=== PATIENT | male | born 1960 | race Caucasian/White ===

== ENCOUNTER 2017-01-14 10:11 | Inpatient (IN) | payer OTHER ==
[2017-01-14] VITALS (13 sets, daily range): BP systolic 84–143; BP diastolic 46–78
[~2017-01-14] VITALS: Ht 170.2 cm; Wt 83.2 kg
--- NOTE | ~2017-01-14 | S ---
[facility] [place] [address] SURGICAL PATH RPT PROCEDURE Name: RITO DELGADO Room #: 455-P ADM IN M.R.#: [id number] Admission: 01/14/17 Date of : 60 Discharge: Report #: [id number] Path Case #: [id number] PATHOLOGY REPORT COLLECTION DATE: 01/22/2017 RECEIVED DATE: 01/22/2017 SUBMITTING PHYS: Dr. Kadeem Gonzalez OTHER PHYS: Dr. Iam Carter SPECIMEN(S) RECEIVED: A.Sigmoid colon * * * * * * * * * * * * FINAL DIAGNOSIS: "Sigmoid colon", resection: - Diverticulitis with acute and chronic inflammation, necrosis and granulation tissue extending into the subserosal adipose tissues; surgical margins without significant inflammation. - Serosa with reactive changes and dense serosal fibrous adhesions. - Lymph nodes (2) with hyperplasia. (2 nodes) (CLW:rodney; 01/25/2017) PATHOLOGIST: Yoana Marroquin M.D. REPORT ELECTRONICALLY SIGNED BY: Yoana Marroquin M.D. DATE/TIME: 01/25/2017 21:25 * * * * * * * * * * * * GROSS PATHOLOGY: Received in formalin labeled "Rito Delgado sigmoid colon" is an partially oriented portion of large bowel which measures 17.2 cm in length and 3.3 cm in diameter. The specimen is closed at both ends with staple lines. At one end there is a blue plastic suture. The serosa is pink-sanchez and smooth. The staple lines are removed, and the specimen is opened to reveal a strictured area in the midportion of the specimen measuring 1.0 cm in length and which has a luminal diameter of 1.3 cm. The colon mucosa is pink-sanchez with unremarkable folding and no polyps, masses, or perforations are identified. Approximately 5 diverticula are identified ranging from 0.2 x 0.2 x 0.1 cm to 0.3 x 0.3 x 0.2 cm. Armament Mechanic sections of the specimen are submitted as follows: A1-A2 staple line margin without suture A3-A4 staple line margin with suture A5 public health representative strictured area A6 public health representative diverticula ([facility]; 01/23/2017) [address] [address] SURGICAL PATH RPT PROCEDURE Name: RITO DELGADO Room #: 455-P ADM IN M.R.#: [id number] Admission: 01/14/17 Date of : 60 Discharge: Report #: [id number] Path Case #: [id number] CLINICAL HISTORY: Diverticulitis, abscess. INITIAL CPT CODE(S): A; 65959 Professional services performed by [facility] at [address], [place] [address] Technical services performed by [facility] at [address] [place] [address], [facility] [address] [address]. [facility] [address] [place] [address] PHONE: [phone] DIRECTOR: Juancarlos Serna M.D. * * * END OF REPORT * * *
--- NOTE | ~2017-01-14 | HC ---
[facility] [place] [address] CONSULTATION Name: BETTY WATKINS Room #: 455-P [facility] IN M.R.#: [id number] Admission: 01/14/17 Attend Phys: Soni Carter Discharge: 01/26/17 Date of : 60 Report #: [id number] THIS REPORT FOR: //name// CC: FAM unknown Soni Carter DATE OF SERVICE: 01/20/2017 HISTORY OF PRESENT ILLNESS: The patient is a 56-year-old white male who was noted to have iliopsoas abscess, was admitted and underwent drain placement. 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 He was noted to be septic originally. He also was noted to have a left lower quadrant wound with perforated diverticulitis with abscess and underwent excisional debridement of the left lower quadrant wound with application of a skin substitute on 01/20/2017. I am seeing him in rehabilitation medicine consultation. PAST MEDICAL HISTORY: Includes cardiomyopathy, hypertension, coronary artery disease, history of UT, GERD, fractures of the left ankle. MEDICATIONS: Please see the full medication listing. ALLERGIES: LISINOPRIL AND SIMVASTATIN. HABITS: Current every day smoker. SOCIAL HISTORY: Lives in a house, 3 steps in. Apparently has a significant other who sometimes lives with him. He has used a walker and cane. REVIEW OF SYSTEMS: Did not offer any current complaints of chest pain, shortness of breath or abdominal discomfort. He is just back from his surgical procedure and appears a little bit delirious at the current time. He is otherwise pleasant. PHYSICAL EXAMINATION: GENERAL: As noted above. He is a 56-year-old white male in no obvious distress. VITAL SIGNS: Last recorded temperature is 98.7, pulse 96, respirations 20, blood pressure 128/71. NEUROLOGIC: The patient is alert, a little delirious. As noted above, he has just back from the surgical procedure. Facies appeared symmetric except for some eye exotropia, bearded white male, male pattern baldness, functional range of motion of both upper extremities without focal weakness. DTRs are trace to 1. EXTREMITIES: Lower extremities, left foot is dressed. Groin wound is dressed. I did not examine. He has discomfort with moving that left leg. He was able to [facility] [address] [email or web address] [address] CONSULTATION Name: BETTY WATKINS Room #: 455-P [facility] IN M.R.#: [id number] Admission: 01/14/17 Attend Phys: Soni Carter Discharge: 01/26/17 Date of : 60 Report #: [id number] move the right leg a little bit better. I did not do a thorough manual muscle testing at this time. Tone appeared to be intact. Previous to this, he had been sit to stand, contact guard and ambulated 18 feet front-wheeled walker, contact guard. ASSESSMENT: A 56-year-old white male with the following problem list: 1. Juan's gangrene, status post incision and drainage, 01/16. 2. Left lower quadrant wound with perforated diverticulitis, status post excisional debridement with placement of a skin substitute on 01/20/2017. 3. Prior noted iliopsoas abscess, status post drain. 4. Generalized weakness and debilitation. 5. Diabetes mellitus. 6. Hypertension. 7. Coronary artery disease. 8. Sepsis. PLAN: Note that LTAC is being considered and we would certainly agree. At this point, we will continue to follow along with you regarding rehab therapy issues. <ELECTRONICALLY SIGNED> By: Juan Parker MD 01/27/17 1006 1159 0220 Juan Parker MD /[facility]
--- NOTE | ~2017-01-14 | S ---
[facility] [place] [address] SURGICAL PATH RPT PROCEDURE Name: RITO DELGADO Room #: 452-P ADM IN M.R.#: [id number] Admission: 01/14/17 Date of : 60 Discharge: Report #: [id number] Path Case #: [id number] PATHOLOGY REPORT COLLECTION DATE: 01/20/2017 RECEIVED DATE: 01/20/2017 SUBMITTING PHYS: Dr. Kadeem Gonzalez OTHER PHYS: Dr. Soni Carter SPECIMEN(S) RECEIVED: A.Left lower quadrant wound * * * * * * * * * * * * FINAL DIAGNOSIS: "Left lower quadrant wound", debridement: - Skin and subcutaneous tissue with acute and chronic inflammation, necrosis, granulation tissue, fat necrosis and fibrosis with focal pseudoepitheliomatous hyperplasia. COMMENT: The pattern of inflammation remains consistent with necrotizing fasciitis. Clinical correlation is recommended. (CLW:garett; 01/22/2017) PATHOLOGIST: Yoana Marroquin M.D. REPORT ELECTRONICALLY SIGNED BY: Yoana Marroquin M.D. DATE/TIME: 01/22/2017 23:41 * * * * * * * * * * * * GROSS PATHOLOGY: The specimen is received in formalin labeled "Rito Delgado, left lower quadrant wound". Received are two strips of pale sanchez skin with attached underlying yellow-sanchez two necrotic-appearing soft tissue measuring 13.8 x 5.5 x 1.9 cm in aggregate dimensions. The specimen is submitted representatively in cassette A1. (CAA; 01/21/2017) CLINICAL HISTORY: Left lower quadrant wound INITIAL CPT CODE(S): A; 16461 Professional [facility] by [facility] [address], [place] [address] [facility] [address] [place] [address] SURGICAL PATH RPT PROCEDURE Name: RITO DELGADO Room #: 452-P ADM IN M.R.#: [id number] Admission: 01/14/17 Date of : 60 Discharge: Report #: [id number] Path Case #: [id number] Technical services performed by [facility] at [address] [place] [address], [facility] [address] [address]. [facility] [address] [place] [address] PHONE: [phone] DIRECTOR: Juancarlos Serna M.D. * * * END OF REPORT * * *
--- NOTE | ~2017-01-14 | O ---
[facility] [place] [address] OPERATIVE REPORT Name: BETTY WATKINS Room #: 449-I ADM IN M.R.#: [id number] Admission: 01/14/17 Attend Phys: Soni Carter Discharge: Date of : 60 Report #: [id number] THIS REPORT FOR: //name// CC: FAM unknown Soni Gonzalez DATE OF SERVICE: 01/20/2017 SURGEON: Kadeem Gonzalez MD [employer]ARM LOAN REPRESENTATIVE: None PREOPERATIVE DIAGNOSES: 1. Left lower quadrant wound. 2. Perforated diverticulitis with abscess. 3. Cardiomyopathy (20-25% ejection fraction). POSTOPERATIVE DIAGNOSES: 1. Left lower quadrant wound. 2. Perforated diverticulitis with abscess. 3. Cardiomyopathy (20-25% ejection fraction). PROCEDURE: 1. Excisional debridement of left lower quadrant wound including skin, subcutaneous tissue, and muscle (starting measurement 16 x 4 cm; ending measurement 19.7 x 8.2 cm = 161.54 cm2 area). 2. Application of MiroDerm biologic skin substitute (161.54 cm2). 3. Misonix ultrasonic debridement. ANESTHESIA: General laryngeal mask anesthesia and local anesthetic. ESTIMATED BLOOD LOSS: 10 mL. SPECIMEN: Left lower quadrant wound including skin, subcutaneous tissue, and muscle. COMPLICATIONS: None appreciated. INDICATIONS FOR PROCEDURE: This is a 56-year-old male patient who was transferred from [place], [place] with diverticulitis and a 7.5 cm diverticular abscess. The patient underwent drainage of the abscess by Interventional Radiology on 01/14/2017. Air was present in the left groin. This substantially increased by Wednesday and the patient underwent incision and debridement of his left lower quadrant wound extending into the left scrotum. The patient presents now for wound exploration with possible [facility] [address] [place] [address] OPERATIVE REPORT Name: BETTY WATKINS Room #: 449-I ADM IN M.R.#: [id number] Admission: 01/14/17 Attend Phys: Soni Carter Discharge: Date of : 60 Report #: [id number] excisional debridement of necrotic tissue. OPERATIVE FINDINGS: The patient's skin edges were desiccated and there was no good blood flow present. Fibrinous exudate was present throughout the entire wound. The dependent portion of the wound extending into the scrotum contained pus. Cultures were taken for aerobes, anaerobes and fungus. After using the Misonix device, there appeared to be good blood flow to the debrided area. The wound was amenable to placement of MiroDerm mesh as a skin substitute to promote wound healing. No other significant pathology was identified. There was no evidence for ongoing abscess drainage into the left lower quadrant space. DESCRIPTION OF PROCEDURE IN DETAIL: After the risks, benefits, and expectations of the operation were discussed in detail with the patient, informed consent was obtained. The patient was identified in the preoperative holding area. He has been receiving scheduled IV antibiotics. The patient was then taken to the operating room and he was placed in the supine position. SCDs were placed on the patient's bilateral lower extremities and pneumatic compression was initiated. The patient was given IV sedation and a laryngeal mask was placed without difficulty. The patient's left lower quadrant and left groin were prepped and draped in the standard sterile fashion. A time-out was then performed to identify the correct patient and procedure. Local anesthetic was infiltrated into the skin and subcutaneous tissue around the skin edges which were not bleeding and were desiccated. A sharp #10 blade scalpel was then used to make an incision around the previous incision to excise skin, subcutaneous tissue, and muscle. Fibrinous exudate was removed as well. The tissue was sent for specimen. The wound was then curetted and the deep portion of the wound was probed. Purulent fluid was present. Cultures were taken for aerobes, anaerobes and fungus. The wound was then irrigated and suctioned and return of all drainage ran clear. Bleeding points were made hemostatic with electrocautery. The Misonix ultrasonic device was then used to debride the entire surface area of the wound including the abscess cavity. There appeared to be good blood flow thereafter. The wound was again irrigated and suctioned. The MiroDerm mesh was then adhered to the surrounding tissue with interrupted 2-0 Vicryl sutures. Two pieces of the fenestrated 8 x 15 cm MiroDerm mesh were necessary to cover the entire wound surface area. Adaptic was then tailored to fit the wound. Normal saline-moistened Kerlix was packed into the wound to serve as a bolster for the MiroDerm mesh. A 4 x 4s and tape were used to dress the wound. The patient tolerated the procedure well. He was awakened, the laryngeal mask was removed without difficulty, and the patient was taken to recovery room in stable condition with no apparent intraoperative complications. <ELECTRONICALLY SIGNED> By: Kadeem Gonzalez MD, FACS 01/21/17 0846 [id number] [id number] Kadeem Gonzalez MD, FACS /nt
--- NOTE | ~2017-01-14 | 2DMMODE ---
[facility] [address] [place] [address] 2 D/M-MODE ECHOCARDIOGRAM Name: BETTY WATKINS Room #: 240-P ADM IN M.R.#: [id number] Admission: 01/14/17 Attend Phys: Soni Sparks Discharge: Date of : 60 Date of Service: 01/15/17 1001 Report #: [id number] THIS REPORT FOR: //name// APPROVED REPORT Study performed: 01/15/2017 08:57:21 EXAM: Comprehensive 2D, Doppler, and color-flow Echocardiogram Patient Location: ICU Room #: 240 Status: routine BSA: 1.86 HR: 100 bpm BP: 107/62 mmHg Other Information Study Quality: Fair Technically limited study due to lung disease. Indications Cardiomyopathy, HTN, HLP, CAD, ID, defibrillator 2D Dimensions RVDd: 34.77 mm LVEF(%): 21.87 (>50%) IVSd: 11.12 (7-11mm) LVOT Diam: 22.09 (18-24mm) LVDd: 58.19 mm PWd: 9.51 (7-11mm) Ascending Ao: 33.11 (22-36mm) LVDs: 52.28 (25-40mm) Aortic Root: 34.75 mm Tang's LVEF: 21.87 % Volumes Left Atrial Volume (Systole) Single Plane 4CH: 37.54 mL Single Plane 2CH: 36.68 mL LA ESV Index: 22.00 mL/m2 Aortic Valve AoV Peak Lyndon.: 1.16 m/s AO Peak Gr.: 5.42 mmHg LVOT Max P.77 mmHg LVOT Max V: 0.97 m/s LELE Vmax: 3.19 cm2 Mitral Valve E/A Ratio: 0.8 [facility] [place] [address] 2 D/M-MODE ECHOCARDIOGRAM Name: JUNEMARCUSBETTY Room #: 240-[facility] IN .R.#: [id number] Admission: 01/14/17 Attend Phys: Soni Sparks Discharge: Date of : 60 Date of Service: 01/15/17 1001 Report #: [id number] MV Decel. Time: 169.77 ms MV E Max Lyndon.: 0.75 m/s MV A Lyndon.: 0.94 m/s MV PHT: 49.23 ms IVRT: 48.44 ms Pulmonary Valve PV Peak Lyndon.: 0.74 m/s PV Peak Gr.: 2.17 mmHg Pulmonary Vein P Vein S: 0.43 m/s P Vein A: 0.45 m/s P Vein D: 0.29 m/s P Vein S/D Ratio: 1.48 Tricuspid Valve TR Peak Lyndon.: 2.38 m/s RAP Estimate: 15.00 mmHg TR Peak Gr.: 22.68 mmHg PA Pressure: 38.00 mmHg Left Ventricle Left ventricle is dilated. Regional wall motion abnormalities are noted. There is normal left ventricular wall thickness. Left ventricular systolic function is severely decreased. LVEF is 25-30%. Mild diastolic dysfunction is present (impaired relaxation pattern). Right Ventricle The right ventricle is normal size. The right ventricular systolic function is normal. Device lead is present in the right ventricle. Atria The left atrium size is normal. The right atrium size is normal. Aortic Valve Aortic valve is calcified with normal excursion. No aortic regurgitation is present. There is no aortic valvular stenosis. Mitral Valve The mitral valve is normal in structure. Mild mitral annular calcification. Trace mitral regurgitation. Tricuspid Valve The tricuspid valve is normal in structure. Trace tricuspid regurgitation. Mild pulmonary hypertension with an estimated PAP of [facility] [address] [place] [address] 2 D/M-MODE ECHOCARDIOGRAM Name: BETTY WATKINS Room #: 240-P ADM IN M.R.#: [id number] Admission: 01/14/17 Attend Phys: Soni Sparks Discharge: Date of : 60 Date of Service: 01/15/17 1001 Report #: [id number] 35-40mmHg. Pulmonic Valve The pulmonary valve is normal in structure. Trace pulmonic regurgitation. Great Vessels The aortic root is normal in size. The ascending aorta is normal in size. IVC is dilated and collapses <50% with inspiration. Pericardium There is no pericardial effusion. <Conclusion> Left ventricle is dilated. Left ventricular systolic function is severely decreased. The right ventricle is normal size. The left atrium size is normal. Aortic valve is calcified with normal excursion. Trace mitral regurgitation. Trace tricuspid regurgitation. Mild pulmonary hypertension with an estimated PAP of 35-40mmHg. <ELECTRONICALLY SIGNED> By: Lonnie Murillo MD 01/15/17 1001 1001 1001 Lonnie Murillo MD /INF
--- NOTE | ~2017-01-14 | HC ---
[facility] [place] [address] CONSULTATION Name: BETTY WATKINS Room #: 240-P ADM IN M.R.#: [id number] Admission: 01/14/17 Attend Phys: Soin Carter Discharge: Date of : 60 Report #: [id number] THIS REPORT FOR: //name// CC: FAM unknown Soni Carter REASON FOR CONSULTATION: Ventricular tachycardia. HISTORY OF PRESENT ILLNESS: The patient is a 56-year-old with a history of coronary artery disease status post myocardial infarction with an ischemic cardiomyopathy, EF of 25-30% based on today's echocardiogram, who has a history of a single chamber ICD implanted back in August 2014. The patient was transferred here to [place] after he was found to have a diverticular abscess at his outside facility. A device interrogation was performed today, which shows that on January 14, at 12:00 a.m., he had an episode of ventricular tachycardia with a tachycardia cycle length of 246 milliseconds that was successfully ATP. His last ATP for VT was back in October 2016, which again was successfully ATP. In January 13, he had 2 episodes of SVT and 150 beats per minute on the monitor that terminated on their own. The patient is nonresponsive and not answering any questions. REVIEW OF SYSTEMS: Unable to obtain due to the patient being nonresponsive. PAST MEDICAL HISTORY: 1. Coronary artery disease, status post myocardial infarction. 2. Ischemic cardiomyopathy, EF of 25-30%. 3. [employer] single chamber ICD implanted on 08/29/2014. He paces less than 1%. He has a VT monitor zone from 150-180 beats per minute, VT-1 zone at 181-214 beats per minute with ATP followed by ICD shocks, and the VF zone at greater than 214 beats per minute. His device is otherwise functioning normally. SOCIAL HISTORY: Unable to obtain. FAMILY HISTORY: Unable to obtain. ALLERGIES: Include LISINOPRIL and SIMVASTATIN. HOME MEDICATIONS: Include Plavix, aspirin, ipratropium, vitamin D3, potassium, Lasix, metoprolol, and spironolactone. CURRENT MEDICATIONS: Include potassium, magnesium, lorazepam, hydroxyzine, Lovenox, metoprolol 5 IV q.6, and Zosyn. PHYSICAL EXAMINATION: GENERAL: The patient appears to be in no acute distress and has his eyes closed. After trying to speak to him, he would not respond to any of my questions. [facility] [address] [place] [address] CONSULTATION Name: BETTY WATKINS Room #: 240-P [facility] IN M.R.#: [id number] Admission: 01/14/17 Attend Phys: Soni Carter Discharge: Date of : 60 Report #: [id number] HEENT: His oropharynx appears to be clear. NECK: Shows no thyromegaly or carotid bruits. HEART: Regular rate and rhythm with no murmurs, rubs, or gallops. LUNGS: Clear to auscultation bilaterally. ABDOMEN: Soft, nontender, and nondistended. EXTREMITIES: There is no clubbing, cyanosis, or edema. NEUROLOGIC: Cranial nerves unable to evaluate, but he is moving his extremities. VITAL SIGNS: Most recent temperature is 38.7, his pulse is 103, his respiratory rate is 23, his blood pressure is 103/66, and his sats are 93%. LABORATORY DATA: White count is 13.9, hemoglobin 10.9, and platelets 316. Sodium 136, potassium 3.1, BUN 10, creatinine 0.9, magnesium 1.7. AST, ALT, and alk phos, within normal limits. Albumin is low at 1.7. His 12-lead EKG shows sinus rhythm with evidence of an old anterior infarct. His telemetry shows sinus rhythm with occasional nonsustained VT. ASSESSMENT: 1. Ventricular tachycardia, status post successful ATP. 2. Supraventricular tachycardia. 3. Single chamber ICD. 4. Ischemic cardiomyopathy. 5. Coronary artery disease. 6. Diabetes mellitus. 7. Abdominal abscess. In summary, the patient is a 56-year-old with history of CAD, ischemic cardiomyopathy, and status post ICD implantation. He had an episode of VT that was successfully treated by his device with antitachycardic pacing. At this point, I would recommend continuing with beta yeimi therapy in optimizing his electrolytes to maintain his potassium greater than 4 and magnesium greater than 2. It appears that his device is functioning normally. If we were to have an increased episodes of VT requiring antitachycardic pacing or ICD shocks, then at that point I would probably recommend initiation of amiodarone therapy. We will continue to follow. <ELECTRONICALLY SIGNED> By: Pablito Justin MD 01/18/17 1410 1323 [id number] Pablito Justin MD /nt
--- NOTE | ~2017-01-14 | O ---
[facility] [place] [address] OPERATIVE REPORT Name: BETTY WATKINS Room #: 452-P ADM IN M.R.#: [id number] Admission: 01/14/17 Attend Phys: Soni Carter Discharge: Date of : 60 Report #: [id number] THIS REPORT FOR: //name// CC: Bernard Carter MD DATE OF SERVICE: 01/22/2017 SURGEON: Kadeem Gonzalez MD SEAT SCOOPER MACHINE: Iam Pino MD PREOPERATIVE DIAGNOSES: 1. Acute sigmoid diverticulitis with abscess. 2. Juan's gangrene of the left groin, status post excisional debridement. 3. Left lower quadrant abdominal wall abscess. 4. Cardiomyopathy (20-25% ejection fraction). POSTOPERATIVE DIAGNOSES: 1. Acute sigmoid diverticulitis with abscess. 2. Umbilical hernia. 3. Juan's gangrene of the left groin, status post excisional debridement. 4. Left lower quadrant abdominal wall abscess. 5. Cardiomyopathy (20-25% ejection fraction). PROCEDURES: 1. Exploratory laparotomy. 2. Sigmoid colectomy with coloproctostomy (descending colon-rectal anastomosis). 3. Mobilization of the splenic flexure. 4. Diverting ileostomy. 5. Primary repair of umbilical hernia. 6. Incision and drainage of left lower quadrant abscess. 7. Mechanical debridement of left groin wound. 8. Placement of topical wound VAC (Prevena). ANESTHESIA: General endotracheal anesthesia and local anesthetic. ESTIMATED BLOOD LOSS: 100 mL. SPECIMEN: Sigmoid colon. COMPLICATIONS: None appreciated. INDICATIONS FOR PROCEDURE: This is a 56-year-old male patient transferred from [facility] [address] [place] [address] OPERATIVE REPORT Name: BETTY WATKINS Room #: 452-P ADM IN M.R.#: [id number] Admission: 01/14/17 Attend Phys: Soni Carter Discharge: Date of : 60 Report #: [id number] [place], [place] with diverticulitis and a 7.5 cm diverticular abscess with air in the left groin. The patient underwent drainage of the abscess by interventional radiology on 01/14/2017. His left groin air increased and he was felt to have Juan gangrene. He necessitated incision and debridement of his left lower quadrant wound extending into his left scrotum. He underwent excisional re-debridement of necrotic tissue and placement of biologic skin substitute. However, on postoperative day #1 from that procedure, he developed stool in both his drain and in the left groin wound. The patient presents today for sigmoid resection with possible anastomosis with ileostomy versus end descending colostomy. OPERATIVE FINDINGS: Upon entrance into the abdominal cavity, there was no evidence for gross contamination of the abdominal cavity with pus or stool. Mobilization of the splenic flexure was necessary in order to perform the coloproctostomy in a tension-free fashion with a 29-mm EEA stapler in an end-to end fashion. There was no evidence for coloproctostomy staple line leak after creation of the anastomosis. Diverting loop ileostomy was patent beyond the fascial level for both afferent and efferent limbs. The patient did have a small left lower quadrant abscess with minimal pus after opening the cavity. His left groin wound was grossly contaminated with stool. The MiroDerm was removed and a mechanical debridement was performed. The patient tolerated the procedure well. There were no other significant intraabdominal pathologic findings. At the conclusion of the operation, sponge, needle, and instrument counts were correct. DESCRIPTION OF PROCEDURE IN DETAIL: After the risks, benefits, and expectations of the operation were discussed in detail with the patient, informed consent was obtained. The patient was identified in the preoperative holding area. He has been receiving scheduled IV antibiotics. He was taken to the operating room and he was placed in the supine position. SCDs were placed on the patient's bilateral lower extremities and pneumatic compression was initiated. The patient was then given IV sedation and he was intubated without incident. A time-out was performed to identify the correct patient and procedure after prepping and draping the patient. Ioban was placed over the patient's abdomen prior to placing the drapes. A sharp #10 blade scalpel was used to make a vertical midline incision around the umbilicus on the patient's right side. Electrocautery was used to dissect through the subcutaneous tissue down to the fascia. The fascia and peritoneum were then opened along the length of the incision. Findings were as noted above. The colon, both above and below the area of colon that was tightly adherent to the retroperitoneum and left lateral side wall was soft and pliable. As the abscess appeared to be contained extraperitoneally, resection with anastomosis and a diverting protective loop ileostomy was felt to be possible. After realizing this possibility, the patient required repositioning to the low lying dorsal lithotomy position in [facility]. The mesentery was scored [facility] [address] [place] [address] OPERATIVE REPORT Name: BETTY WATKINS Room #: 452-P ADM IN M.R.#: [id number] Admission: 01/14/17 Attend Phys: Soni Macario Raul Discharge: Date of : 60 Report #: [id number] inferiorly and an appropriate area was chosen for a mesenteric window. A blue load contour stapler was then used to staple and divide the rectosigmoid junction. The mesentery was then divided with the Ethicon energy device with good hemostasis. An area was chosen for proximal transection as well above the area of acute inflammation. A mesenteric window was created in this area and the blue load contour stapler was used to staple and divide the colon in this area. The mesentery was divided down to the level of acute inflammation where the colon was adherent to the retroperitoneum and left lateral side wall. This was carefully taken down with blunt dissection and judicious use of energy with care taken to identify and protect the left ureter. The colon was then removed and sent for specimen with a suture marking the proximal staple line. The distal aspect of the descending colon was not able to be brought down to the rectum without significant tension. The rectum was freed circumferentially. Mobilization of the splenic flexure was necessary. The greater omentum was opened at the level of the splenic flexure and mobilization of the splenic flexure undertaken with electrocautery and use of the Ethicon energy device. A small portion of the mesentery required division; however, this did not cause ischemia of the descending colon. The colon was felt able to reach down to the pelvis without significant tension. The Omni retractor was placed for greater visualization. The pursestring suture device was then applied to the descending colon and the staple line was excised. Allis clamps were used to triangulate open the colon and the colon was sized. The medium sized stapler was felt to be appropriate. The anvil was placed within the open end of the colon, the Allis clamps were removed, and the suture was tied. Excess fatty tissue was carefully dissected off of the colon with electrocautery. From below, the colon was dilated first with the small, then medium sized dilators. The Ethicon 29 mm EEA stapler was then advanced transanally up to the rectal stump staple line. The spike was advanced and the anvil was connected to the stapler. The stapler was then tightened and fired after ensuring no twisting of the mesentery. There was no tension on the anastomosis. The stapler was then fired and removed. The anastomotic rings were complete. The staple line was then tested for leak. The colon was occluded proximally and the abdominal cavity was filled with saline. From below, the rigid proctoscope was used to insufflate air into the colon beyond the anastomosis and no air bubbles were seen emanating through the fluid. The fluid was then suctioned and the proctoscope was removed. 10 mL of Tisseel was applied to the staple line to also help prevent leakage. A drain was then placed within the abdominal cavity and brought out through the left lateral abdomen. The drain was secured to the skin with a 2-0 nylon suture. The drain was positioned to drain the dependent portion of the abdomen and extend up to the right pericolic gutter. An area was chosen for loop ileostomy (distal terminal ileum). A circular incision was created and dissection was carried down to the fascia. The fascia was then opened with a cruciate incision and the underlying rectus abdominis muscles were split longitudinally. The posterior rectus fascia was opened. The opening was then dilated with two fingers. A [place] was then used to advance the loop [address] [address] OPERATIVE REPORT Name: BETTY WATKINS Room #: 452-P [facility] IN M.R.#: [id number] Admission: 01/14/17 Attend Phys: Soni Carter Discharge: Date of : 60 Report #: [id number] through the opening. The abdominal cavity was then irrigated and suctioned and return of all drainage ran clear. Hemostasis was ensured. Interceed was placed around the stoma and beneath the planned midline abdominal wall closure. The fascia was closed with a running looped #1 PDS suture incorporating the umbilical hernia defect that had been incarcerated. The incarcerated tissue was reduced out of the hernia. Care was taken to ensure no incorporation of intra-abdominal content with the closure. The wound was then irrigated and suctioned. The skin was stapled for closure. Creation of ileostomy was undertaken next. The loop of terminal ileum was opened longitudinally and Vida-type 3-0 Vicryl sutures were placed at the 12, 3, 6, and 9 o'clock positions. Running 3-0 Vicryl sutures were then used to finish the maturation of the stoma. The stoma was patent at both the afferent and efferent levels. The Prevena dressing was then placed. The skin had been cleansed and dried. A notch was cut out to accommodate for the ileostomy. The ileostomy appliance was then placed. There was a good seal on the Prevena device. Incision and drainage of the left lower quadrant abscess cavity was performed next. Local anesthetic was infiltrated into the skin and subcutaneous tissue following the skin lines. A sharp #15 blade scalpel was used to make the incision. Dissection was carried down to the abscess cavity. The cavity was then irrigated. Drainage was then clear. A 1-inch iodoform packing was placed within the abscess cavity and a dressing was applied. Debridement of the left groin wound was undertaken next. The MiroDerm mesh was removed from the area. The sutures holding it in place were excised. The wound was then mechanically debrided with laparotomy tapes. There was a gentle ooze from the underlying viable tissue. The wound was then irrigated and return of all drainage ran essentially clear. The wound was packed with 1:1 Betadine to normal saline on Kerlix gauze. 4 x 4s and tape were then applied. The patient tolerated the procedure well. He was awakened, extubated, and taken to recovery room in stable condition with no apparent intraoperative complications. <ELECTRONICALLY SIGNED> By: Kadeem Gonzalez MD, FACS 01/23/17 0841 [id number] 1826 Kadeem Gonzalez MD, FACS /nt
--- NOTE | ~2017-01-14 | S ---
[facility] [place] [address] [place] [address] SURGICAL PATH RPT PROCEDURE Name: RITO DELGADO Room #: 449-I ADM IN M.R.#: [id number] Admission: 01/14/17 Date of : 60 Discharge: Report #: [id number] Path Case #: [id number] PATHOLOGY REPORT COLLECTION DATE: 01/16/2017 RECEIVED DATE: 01/18/2017 SUBMITTING PHYS: Dr. Michael Tran OTHER PHYS: Dr. Snoi Olivo MD SPECIMEN(S) RECEIVED: A.Left inguinal tissue * * * * * * * * * * * * FINAL DIAGNOSIS: "Left inguinal tissue," debridement: - Fibroadipose connective tissue with acute and chronic inflammation, necrosis, granulation tissue, fat necrosis, and fibrosis. (see comment) COMMENT: The pattern of inflammation is histologically compatible with necrotizing fasciitis. Clinical correlation is recommended. (CLW:mgisaias; 01/19/2017) PATHOLOGIST: Yoana Marroquin M.D. REPORT ELECTRONICALLY SIGNED BY: Yoana Marroquin M.D. DATE/TIME: 01/19/2017 22:56 * * * * * * * * * * * * GROSS PATHOLOGY: The specimen is received in formalin, labeled "Rito Delgado, left inguinal tissue" and consists of necrotic tissue fragments and adipose tissue ranging in size from 1.2 cm to 5.0 cm and aggregating to 6.2 x 5.2 x 2.1 cm. Sliver Chopper sections are submitted as A1. (KWAN; 01/18/2017) CLINICAL HISTORY: Necrotizing fasciitis INITIAL CPT CODE(S): 43317 Professional services performed by [facility] at [facility] [address] [place] [address] SURGICAL PATH RPT PROCEDURE Name: JUNERITO Room #: 449-I ADM IN M.R.#: [id number] Admission: 01/14/17 Date of : 60 Discharge: Report #: [id number] Path Case #: [id number] [address], [place] [address] Technical services performed by [facility] at [address] [place] [address], [facility] [address] [address]. [facility] [address] [place] [address] PHONE: [phone] DIRECTOR: Juancarlos Serna M.D. * * * END OF REPORT * * *
--- NOTE | ~2017-01-14 | HC ---
[facility] [place] [address] [place] [address] CONSULTATION Name: BETTY WATKINS Room #: 240-P ADM IN M.R.#: [id number] Admission: 01/14/17 Attend Phys: Soni Carter Discharge: Date of : 60 Report #: [id number] THIS REPORT FOR: //name// CC: FAM unknown Soni Carter DATE OF SERVICE: 01/14/2017 ATTENDING PHYSICIAN: Soni Carter MD CONSULTING PHYSICIAN: Kadeem Gonzalez MD REASON FOR CONSULTATION: Diverticulitis with abscess. HISTORY OF PRESENT ILLNESS: This is a 56-year-old male patient who was transferred from [facility] in [place], [place] today with a history of diverticulitis with an abscess. He presented there with abdominal pain and chills. CT revealed a 7.5 cm diverticular abscess. The patient reportedly was seen at the [facility] last month with similar complaints and evidently, a pigtail catheter was not able to be placed. The patient reports worsening pain and weakness. At the time I saw him, he was confused. PAST MEDICAL HISTORY: Includes cardiomyopathy (7% ejection fraction), congestive heart failure, history of [place], hypertension, gastroesophageal reflux disease, ulcerative colitis, arthritis, and diabetes mellitus. PAST SURGICAL HISTORY: Appendectomy, eye surgery, surgery for bowel perforation, and cardiac stents times 2. MEDICATIONS: Please see the hospital chart for a complete list of medications and dosage. These include Plavix, 81 mg aspirin, ipratropium/albuterol sulfate, vitamin D3, potassium chloride, Lasix, Toprol-XL, and spironolactone. ALLERGIES: LISINOPRIL and SIMVASTATIN. FAMILY HISTORY: Reviewed and noncontributory to this hospitalization. Positive for heart disease and diabetes. SOCIAL HISTORY: The patient smokes 1 pack of cigarettes daily. Denies use of alcohol or illicit drugs. REVIEW OF SYSTEMS: As per history of present illness. In addition: GENERAL: The patient reports fever and chills with malaise. HEENT: Denies changes in the taste, vision, hearing, or smell. RESPIRATORY: Denies worsening shortness of breath, has a history of asthma. CARDIOVASCULAR: Denies chest pain or palpitations, has a significant cardiac [facility] [address] [place] [address] CONSULTATION Name: BETTY WATKINS Room #: 240-P [facility] IN M.R.#: [id number] Admission: 01/14/17 Attend Phys: Soni Carter Discharge: Date of : 60 Report #: [id number] history. GASTROINTESTINAL: As per history of present illness including abdominal pain and nausea. Denies bright red blood per rectum. GENITOURINARY: Denies dysuria or increased urinary frequency, has urinary urgency. MUSCULOSKELETAL: Reports both myalgia and arthralgia. NEUROLOGIC: Denies numbness or tingling. PSYCHIATRIC: Denies depression, anxiety, or suicidal ideations. SKIN AND INTEGUMENTARY: Denies new skin lesions, rashes, or moles. ENDOCRINE: Denies polydipsia, polyuria, heat, or cold intolerance. HEMATOLOGIC: Denies anemia, takes Plavix and has some increased bleeding. All other review of systems is negative. PHYSICAL EXAMINATION: VITAL SIGNS: Temperature 98.8, blood pressure 122/62, pulse 120, and respirations 16. GENERAL: This is a 56-year-old male patient who is confused, oriented to only his name. HEENT: Atraumatic and normocephalic. NECK: Supple. No appreciable lymphadenopathy. Trachea is midline. CHEST: Clear bilaterally. CARDIOVASCULAR: Sinus tachycardia. ABDOMEN: Soft, but tender to palpation, greatest in the lower abdomen. He has mild voluntary guarding. No rebound. No appreciable hernias. GENITOURINARY: Normal external male genitalia. EXTREMITIES: No clubbing or cyanosis. NEUROLOGIC: Unable to assess. PSYCHIATRIC: Unable to assess, but is confused. SKIN AND INTEGUMENTARY: No acute inflammatory changes, rashes, or lesions are present. LABORATORY DATA: The patient's lactate was 1.5. Labs at [facility] are not available; however, CBC from [facility] shows a white blood cell count of 17, hemoglobin 13.3, hematocrit 40.0, and platelets 428. Electrolytes showed a sodium of 133, potassium 3.8, chloride 92, CO2 29, BUN 22, creatinine 1.4 and glucose 230. Total bilirubin and liver function tests were within normal limits. RADIOLOGIC STUDIES: CT of the abdomen and pelvis showed a 7.5 mm lower abdominal abscess associated with sigmoid diverticulitis changes. In addition to this, the patient had a left groin edema. IMPRESSION AND PLAN: This is a confused 56-year-old male patient with the above listed comorbidities who now has acute diverticulitis with a large diverticular abscess. He is confused and unable to give consent. He would benefit from a [facility] [address] [place] [address] CONSULTATION Name: JUNEBETTY Room #: 240-P ADM IN M.R.#: [id number] Admission: 01/14/17 Attend Phys: Soni Carter Discharge: Date of : 60 Report #: [id number] percutaneous drainage of his abscess by interventional radiology. I attempted to discuss the pathophysiology and natural history of acute diverticulitis as well as treatment alternatives and surgical options. The drain is necessary to prevent him from having to undergo an urgent operation and possibly a colostomy. I attempted to make the patient aware that without drainage and without surgery, he would become extremely ill and could perish. He did not express understanding of this. The patient was seen with Dr. Julian Silva with interventional radiology and decision was made that the patient would benefit from percutaneous drainage based on medical necessity. Continue bowel rest and IV antibiotics and I will follow along closely. No immediate plans for surgery; however, provided the patient resolves his abscess, would consider segmental colectomy electively in 3 months. If he does not significantly improve with drainage of the abscess, he may require more immediate surgery, which could involve creation of a colostomy or ileostomy. I sincerely appreciate the opportunity to participate in the care of this patient and we will leave further recommendations and orders in the electronic medical record as appropriate. <ELECTRONICALLY SIGNED> By: Kadeem Gonzalez MD, FACS 01/15/17 1055 0928 Kadeem Gonzalez MD, FACS /nt
--- NOTE | ~2017-01-14 | O ---
[facility] [place] [address] [place] [address] OPERATIVE REPORT Name: BETTY WATKINS Room #: 240-P ADM IN M.R.#: [id number] Admission: 01/14/17 Attend Phys: Soni Carter Discharge: Date of : 60 Report #: [id number] THIS REPORT FOR: //name// CC: FAM unknown Soni Carter DAY GUARD: Iam Pino MD. ANESTHESIA: General endotracheal. PREOPERATIVE DIAGNOSIS: Juan's gangrene. POSTOPERATIVE DIAGNOSIS: Juan's gangrene. PROCEDURE: Incision and drainage of abscess and excision of necrotic tissue. SURGEON: Michael Tran MD. INDICATION: This is a 56-year-old gentleman who presented to [facility] with an iliopsoas abscess that was drained [address] scan reveals now subcutaneous gas extending from the abscess down into the scrotal wall as well as the inguinal region. Dr. Pino has consulted us to provide assistance and guidance regarding the incision and drainage. DESCRIPTION OF PROCEDURE: The patient was consented. He received IV antibiotics previously. He was taken to the OR where he underwent endotracheal anesthesia. He was sterilely prepped and draped in the dorsal lithotomy position. An incision was carried out over the inguinal region extending into the inguinal scrotal region. The tissues were dissected down to the Donna's level where the abscess pocket was encountered. This tracked from the iliopsoas abscess and in the retroperitoneum into the inguinal region and then down into the lateral scrotum as well as across anteriorly to the right inguinal region. The abscess cavity was bluntly dissected and opened and the resulting fluid was cultured and subsequently drained. There was necrotic appearing fascial tissue consistent with necrotizing fasciitis involving Donna's fascia extending from the inguinal region into the upper thigh as well as a small amount into the upper scrotum. This was dissected free back to viable appearing tissue. The external oblique muscle appeared to be viable as did its fascia and this was left intact. The cord was identified early in the dissection was kept free from any dissection and harm and it also appeared viable. The area was thoroughly irrigated and iodine impregnated Kerlix gauze was placed as packing and the patient was transferred to the recovery room in stable condition. <ELECTRONICALLY SIGNED> By: Michael Tran MD 01/17/17 1032 1434 1650 Michael Tran MD /nt
--- NOTE | ~2017-01-14 | HC ---
[facility] [place] [address] CONSULTATION Name: BETTY WATKINS Room #: 240-P ADM IN M.R.#: [id number] Admission: 01/14/17 Attend Phys: Soni Carter Discharge: Date of : 60 Report #: [id number] THIS REPORT FOR: //name// CC: FAM unknown Soni Carter DATE OF SERVICE: 01/16/2017 REFERRING PHYSICIAN: Dr. Pino. REASON FOR REFERRAL: Postop pulmonary management. HISTORY OF PRESENT ILLNESS: The patient is a 56-year-old white male who was transferred from [facility] for management of an iliac fossa abscess and diverticulitis. He was admitted on 01/14/2017. 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 The patient is scheduled to go to surgery later today. A pulmonary consultation is requested. Currently, the patient appears awake, denies any dyspnea. PAST MEDICAL HISTORY: Notable for coronary artery disease with past history of myocardial infarction, ischemic cardiomyopathy, diabetes mellitus, gastroesophageal reflux disease, diverticulosis. He was recently hospitalized at [facility] for febrile illness. He also has a history of tobacco abuse. History of prior left ankle fracture. ALLERGIES: LISINOPRIL, SIMVASTATIN, REACTIONS UNSPECIFIED. CURRENT MEDICATIONS: Reviewed. It is in MAR. FAMILY HISTORY: Noncontributory. SOCIAL HISTORY: He smokes about a pack a day. He denies any alcohol use. REVIEW OF SYSTEMS: As mentioned above, otherwise 10-point system review negative. PHYSICAL EXAMINATION: GENERAL: He is awake, alert, in no apparent distress. VITAL SIGNS: Temperature is 98 degrees Fahrenheit, pulse is 100, respiratory rate is 18, blood pressure is 90/55 mmHg and saturation is 95%. HEENT: Normocephalic, atraumatic. NECK: Supple, without any lymphadenopathy or thyromegaly. [facility] [address] [place] [address] CONSULTATION Name: BETTY WATKINS Room #: 240-P ADM IN M.R.#: [id number] Admission: 01/14/17 Attend Phys: Soni Carter Discharge: Date of : 60 Report #: [id number] CHEST: Breath sounds are clear bilaterally without any rales or wheezes. CARDIOVASCULAR: Normal S1, S2. No murmurs or gallop. There is no JVD. There is no carotid bruit. Pulses are 2+/4+ bilaterally. ABDOMEN: Soft, tender in the lower quadrant. No masses felt. GENITOURINARY AND RECTAL: Deferred. Findings per surgery. EXTREMITIES: There is no edema, cyanosis or clubbing. LABORATORY DATA: Echocardiogram performed shows severely decreased left ventricular function; however, ejection fraction was not mentioned, left ventricle was dilated, trace mitral regurgitation, pulmonary artery pressure measured 35-40. CT of the pelvis shows significant progression of necrotizing fasciitis along the left lower quadrant extending into the left inguinal region into the suprapubic region and to the anterior scrotum. The subcutaneous dissect superficially into the abdominal musculature. Sodium 137, potassium 3.6, chloride 104, CO2 of 27, BUN is 8, creatinine 0.8. WBC is 15,900, hemoglobin is 10.0, platelets are normal. Albumin 1.5. Arterial blood gas revealed pH 7.47, pCO2 of 31, pO2 of 80 on 2 liters of O2. IMPRESSION: 1. Necrotizing fasciitis involving his inguinal area as mentioned above. The patient is scheduled to undergo OR later today. 2. Acute hypoxic respiratory failure. He has a history of tobacco use. Presume the patient likely has chronic obstructive pulmonary disease. 3. Coronary artery disease with history of ischemic cardiomyopathy. LV by echocardiogram was dilated with the function markedly reduced. 4. Hypertension. 5. Gastroesophageal reflux disease. 6. Severe protein-calorie malnutrition. RECOMMENDATION: Plan to go to OR later today is noted. We will continue bronchodilators, wean O2 for saturation 90%. Because of his underlying cardiac and pulmonary impairment, the patient does have high postop complications. We will continue to follow. Thank you for this consultation. <ELECTRONICALLY SIGNED> By: Pieter Wood MD 01/18/17 1209 [id number] [id number] Pieter Wood MD /nt
--- NOTE | ~2017-01-14 | EKG ---
[address] [place] [address] ELECTROCARDIOGRAM REPORT Name: BETTY WATKINS Room #: 455-P ADM IN M.R.#: [id number] Admission: 01/14/17 Attend Phys: Soni Carter Discharge: Date of : 60 Report #: [id number] THIS REPORT FOR: //name// [facility] Test Date: 2017-01-25 Test Time: 22:16:55 Pat Name: BETTY WATKINS Department: Room: 455 P Gender: M Snow Technician: Herlinda CARDOSO : 1960 Requested By: Dottie Ng Order Number: [id number] MD: Danial Urbano Measurements Intervals [place] Rate: 103 P: 68 HI: 178 QRS: 84 QRSD: 92 T: 58 QT: 328 QTc: 430 Interpretive Statements Sinus tachycardia Anterior infarct, old Compared to ECG 01/15/2017 08:56:48 No significant change was found Electronically Signed On 01-26-2017 7:32:24 CDT by Danial Urbano [email or web address] <ELECTRONICALLY SIGNED> By: Danial Urbano MD, [facility] 01/26/17 0732 D: 09/2215 15 Danial Urbano MD, FACC /EPI
--- NOTE | ~2017-01-14 | HC ---
[facility] [place] [address] CONSULTATION Name: BETTY WATKINS Room #: 449-I ADM IN M.R.#: [id number] Admission: 01/14/17 Attend Phys: Soni Carter Discharge: Date of : 60 Report #: [id number] THIS REPORT FOR: //name// CC: FAM unknown Soni Carter REASON FOR CONSULTATION: I was asked to evaluate concerning intra-abdominal abscess. HISTORY OF PRESENT ILLNESS: The patient was a 56-year-old with a history of diverticulitis with abscess. He was transferred yesterday from [facility] in [place]. It was noted there that he had a 7.5 cm diverticular abscess. He had been on antibiotics previously to the month after being evaluated at the [facility] with diverticulitis and associated abscess. Apparently, this was not amenable to percutaneous drainage. He was then treated with antibiotics. From [place], he was transferred to [facility] for further treatment. Last night, he underwent percutaneous drainage of the pelvic abscess. He has been febrile, became hypotensive and now is in the intensive care unit. The patient was a very poor historian. He was lethargic and could not offer a consistent history. ALLERGIES: LISINOPRIL, SIMVASTATIN. MEDICATIONS: As noted on his JUL, now on Zosyn. PAST MEDICAL HISTORY: Cardiomyopathy with a defibrillator in the left chest. He had previous WA, hypertension, gastroesophageal reflux, ulcerative colitis, arthritis, diabetes, appendectomy; surgery for bowel perforation, further details not available; eye surgery, cardiac stents. FAMILY HISTORY: Noncontributory. SOCIAL HISTORY: He is a smoker of cigarettes. No significant alcohol intake. REVIEW OF SYSTEMS: No significant cough or sputum production. No chest pain. He has indwelling Rinaldi catheter. Has a fair amount of pain in his abdomen. PHYSICAL EXAMINATION: VITAL SIGNS: Maximum temperature is 102.6 axillary earlier this morning. Blood pressure 96/56, pulse 100, MAP of 68. He is on IV fluids, 2 liters of oxygen per nasal cannula. GENERAL: He was lethargic, but would arouse and answer some questions. Drain in the left lower abdomen has purulent drainage in the bag. LUNGS: Clear anteriorly. HEART: Regular. ABDOMEN: Soft, tender in the left lower quadrant. He had swelling in the left inguinal region, which was exquisitely tender. External genitalia unremarkable [facility] [address] [place] [address] CONSULTATION Name: BETTY WATKINS Room #: 449-I ADM IN M.R.#: [id number] Admission: 01/14/17 Attend Phys: Soni Carter Discharge: Date of : 60 Report #: [id number] with indwelling Rinaldi catheter. EXTREMITIES: Left foot wound to the plantar aspect was clean with no surrounding cellulitis. LABORATORY DATA: Sodium 136, potassium 3.1, bicarbonate 26, creatinine 0.9. AST 13, ALT less than 6, bilirubin 0.3, alkaline phosphatase 78, albumin 1.7. Lactate 1.5. INR 1.2. Hemoglobin 10.9, white count 13.9, platelet count 316,000 with 90% neutrophils, 1% bands. Urinalysis positive for glucose, ketones and trace blood. ABG on 2 liters, pO2 of 80, pCO2 of 31, pH 7.47. Pelvic fluid collection Gram stain, mixed shriin; culture so far, mixed shirin. Blood culture is pending. CT scan abscess drainage report is pending. Chest x-ray: No acute pulmonary changes. IMPRESSION: A 56-year-old diabetic with cardiomyopathy, ulcerative colitis, diverticular abscess. PLAN: Recommend continuing broad IV antibiotic coverage, pending further culture results. Considering the patient has been in and out of the hospital, we will add vancomycin to the Zosyn. Ultimately, the patient will require surgical intervention, but hopefully we can get things calm down with percutaneous drainage and antibiotics. <ELECTRONICALLY SIGNED> By: Felix Penny MD 01/21/17 1139 0959 1053 Felix Penny MD /nt
--- NOTE | ~2017-01-14 | EKG ---
[address] [place] [address] ELECTROCARDIOGRAM REPORT Name: BETTY WATKINS Room #: 240-P ADM IN M.R.#: [id number] Admission: 01/14/17 Attend Phys: Soni Carter Discharge: Date of : 60 Report #: [id number] THIS REPORT FOR: //name// [facility] Test Date: 2017-01-15 Test Time: 08:56:48 Pat Name: BETTY WATKINS Department: Room: 240 P Gender: M Dialysis Registered Nurse: varinder : 1960 Requested By: Sandy Moore Order Number: [id number] MD: Danial Urbano Measurements Intervals [place] Rate: 99 P: 57 MO: 168 QRS: 53 QRSD: 104 T: 93 QT: 369 QTc: 474 Interpretive Statements Sinus rhythm Anterior infarct, old Nonspecific T abnormalities, lateral leads Baseline wander in lead(s) V3 No previous ECG available for comparison Electronically Signed On 01-17-2017 13:26:31 CDT by Danial Urbano [email or web address] <ELECTRONICALLY SIGNED> By: Danial Urbano MD, [facility] 01/17/17 1326 D: 0956 5 Danial Urbano MD, [facility] /EPI
--- NOTE | ~2017-01-14 | HC ---
[facility] [address] [address] CONSULTATION Name: BETTY WATKINS Room #: 452-P ADM IN M.R.#: [id number] Admission: 01/14/17 Attend Phys: Soni Carter Discharge: Date of : 60 Report #: [id number] THIS REPORT FOR: //name// CC: FAM unknown Soni Carter DATE OF SERVICE: 01/15/2017 DATE OF SERVICE: 01/15/2017 CHIEF COMPLAINT: Ulceration of the right foot. HISTORY OF PRESENT ILLNESS: This is a 56-year-old male patient with a history of diverticulitis and abscess. He was a transfer here from [place]. He is being evaluated for diverticular abscess. He was noted to have ulceration on his left lateral foot and I have been asked to see him in this regard. PAST MEDICAL HISTORY: History of cardiomyopathy with a defibrillator, hypertension, gastroesophageal reflux, ulcerative colitis, arthritis, diabetes, appendectomy. FAMILY HISTORY: Noncontributory. SOCIAL HISTORY: The patient negative for alcohol use. Positive for smoking cigarettes. REVIEW OF SYSTEMS: CONSTITUTIONAL: The patient denies fever or chills. ENT: The patient denies earache, nasal drainage, sore throat. CARDIOVASCULAR: No chest pain or palpitations. PULMONARY: The patient denies cough, shortness of breath. GASTROINTESTINAL: The patient denies nausea or abdominal discomfort. ORTHOPEDIC: The patient is aware of ulceration on his foot. PHYSICAL EXAMINATION: VITAL SIGNS: At this time include temperature 102.6, pulse 109, blood pressure 110/64, respiration rate 16. GENERAL: This is a chronically ill-appearing male patient who appears to be in minimal distress. HEENT: Normocephalic. NECK: Supple. LUNGS: Clear. ABDOMEN: Shows tender, especially in the lower quadrants, more so on the left than the right. EXTREMITIES: Demonstrate ulceration in left lateral foot with a clean base and no evidence of infection, no exposed bone at this time. He has small [facility] [address] [place] [address] CONSULTATION Name: BETTY WATKINS Room #: 452-P ADM IN .R.#: [id number] Admission: 01/14/17 Attend Phys: Soni Carter Discharge: Date of : 60 Report #: [id number] sacrococcygeal pressure ulceration as well. CLINICAL IMPRESSION: 1. Ulceration left lateral foot. 2. Cardiomyopathy. 3. Diverticular abscess. RECOMMENDATIONS: The patient is currently on intravenous antibiotic therapy. Recommend continuing on current medications. We will recommend TheraHoney and foam border dressing to the left lateral foot, turning and repositioning every 2 hours. I appreciate being asked to see him in consultation. <ELECTRONICALLY SIGNED> By: Manuel Chamorro MD 01/25/17 1305 1125 [id number] Manuel Chamorro MD /nt
[2017-01-14] MEDS ORDERED: ASPIR 8181 MG PO (11:48)
[2017-01-14] MEDS ORDERED: PLAVIX 75 MG TA75 M1 PO (11:48)
[2017-01-14] MEDS ORDERED: COMBIVENT RESPIM4 GM IH (11:49)
[2017-01-14] MEDS ORDERED: VITAMIN D3400 UNIT PO (11:49)
[2017-01-14] MEDS ORDERED: POTASSIUM20 PO (11:50)
[2017-01-14] MEDS ORDERED: LASIX 40 MG TAB40 M2 PO (11:50)
[2017-01-14] MEDS ORDERED: TOPROL XL25 MG PO (11:51)
[2017-01-14] MEDS ORDERED: SPIRONOLACTONE25 M1 PO (11:52)
[2017-01-14 14:51] LABS: APTT 29.6 Seconds (24.5-32.8); INR 1.2; PROTIME 12.1 Seconds (9.3-11.4)
[2017-01-15] VITALS (75 sets, daily range): BP systolic 74–119; BP diastolic 38–84
[2017-01-15 00:45] LABS: HEMOGLOBIN 11.2 gm/dL (14.0-18.0); MCH 26.8 pg (26.0-34.0); MCV 81.1 fL (80.0-100.0); PLATELET COUNT 338 thou/uL (150-400); RBC 4.19 mil/uL (4.50-6.00); RDW 14.4 % (10.5-14.5); WBC 16.4 thou/uL (4.0-11.0)
[2017-01-15 00:53] LABS: MANUAL DIFF YES
[2017-01-15 00:56] LABS: CREATININE 0.8 mg/dL (0.7-1.3); POTASSIUM 3.6 mmol/L (3.5-5.1)
[2017-01-15 01:04] LABS: ABG SAMPLE TYPE ARTERIAL; BE(vivo) 0 mmol/L (-2 to +3); HCO3 22.9 mmol/L (22.0-26.0); LACTATE 1.16 mmol/L (0.5-2.0); O2(CT) 16.2 mL/dL (15.0-23.0); O2Hb 95.4 % (92.0-98.0); PCO2 31.9 mmHg (35.0-45.0); PO2 80.6 mmHg (80.0-100.0); STICK SITE L.BRACHIAL; pH 7.474 (7.360-7.450); sO2 96.7 % (92.0-98.0); tCO2 23.9 mmol/L (24.0-30.0)
[2017-01-15 01:48] LABS: CALCIUM 7.8 mg/dL (8.5-10.1)
[2017-01-15 01:55] LABS: ABSOLUTE NEUTROPHILS 14.9 thou/uL (1.4-8.2); TOTAL CELL COUNT 100
[2017-01-15 06:02] LABS: HEMOGLOBIN 10.9 gm/dL (14.0-18.0); MCH 26.6 pg (26.0-34.0); MCHC 32.9 g/dL (28.0-37.0); MCV 80.9 fL (80.0-100.0); RBC 4.08 mil/uL (4.50-6.00); RDW 14.3 % (10.5-14.5); WBC 13.9 thou/uL (4.0-11.0)
[2017-01-15 06:23] LABS: ALBUMIN 1.7 g/dL (3.4-5.0); ALKALINE PHOSPHATASE 78 U/L (46-116); ANION GAP 10 mmol/L (7-16); BUN 10 mg/dL (7-18); CALCIUM 7.8 mg/dL (8.5-10.1); CHLORIDE 100 mmol/L (98-107); CO2 26 mmol/L (21-32); CREATININE 0.9 mg/dL (0.7-1.3); GLUCOSE 199 mg/dL (74-106); POTASSIUM 3.1 mmol/L (3.5-5.1); SGOT 13 U/L (15-37); SODIUM 136 mmol/L (136-145); TOTAL BILIRUBIN 0.3 mg/dL (<0.1-1.0)
[2017-01-15 06:26] LABS: SGPT < 6 U/L (30-65)
[2017-01-15 08:51] LABS: URINE BILIRUBIN NEGATIVE (Negative); URINE BLOOD TRACE (Negative); URINE COLOR YELLOW; URINE GLUCOSE-RANDOM* 1+ (Negative); URINE KETONES 1+ (Negative); URINE NITRITE NEGATIVE (Negative); URINE PROTEIN (DIPSTICK) NEGATIVE (Negative); URINE UROBILINOGEN 0.2 E.U./dl (0.2-1.0)
[2017-01-15 17:32] LABS: MAGNESIUM 1.9 mg/dL (1.8-2.4); POTASSIUM 3.4 mmol/L (3.5-5.1)
[2017-01-16] VITALS (34 sets, daily range): BP systolic 80–119; BP diastolic 47–82
[2017-01-16 04:00] LABS: HEMATOCRIT 28.5 % (42.0-52.0); HEMOGLOBIN 9.5 gm/dL (14.0-18.0); MCHC 33.4 g/dL (28.0-37.0); MCV 80.8 fL (80.0-100.0); PLATELET COUNT 261 thou/uL (150-400); RBC 3.53 mil/uL (4.50-6.00); RDW 14.7 % (10.5-14.5); WBC 13.2 thou/uL (4.0-11.0)
[2017-01-16 04:01] LABS: MANUAL DIFF YES
[2017-01-16 04:15] LABS: ALBUMIN 1.5 g/dL (3.4-5.0); CALCIUM 7.7 mg/dL (8.5-10.1); CREATININE 0.8 mg/dL (0.7-1.3); MAGNESIUM 1.8 mg/dL (1.8-2.4); POTASSIUM 3.4 mmol/L (3.5-5.1); TOTAL BILIRUBIN 0.3 mg/dL (<0.1-1.0); TOTAL PROTEIN 5.5 g/dL (6.4-8.2)
[2017-01-16 07:46] LABS: ABSOLUTE NEUTROPHILS 11.6 thou/uL (1.4-8.2); TOTAL CELL COUNT 100
[2017-01-16 12:05] LABS: INR 1.2; PROTIME 11.8 Seconds (9.3-11.4)
[2017-01-16 13:42] LABS: HEMATOCRIT 29.4 % (42.0-52.0); MCH 27.5 pg (26.0-34.0); MCHC 33.9 g/dL (28.0-37.0); MCV 81.1 fL (80.0-100.0); RBC 3.62 mil/uL (4.50-6.00); RDW 14.1 % (10.5-14.5); WBC 15.8 thou/uL (4.0-11.0)
[2017-01-16 13:49] LABS: CALCIUM 7.9 mg/dL (8.5-10.1); CREATININE 0.8 mg/dL (0.7-1.3); POTASSIUM 3.6 mmol/L (3.5-5.1)
[2017-01-17] VITALS (22 sets, daily range): BP systolic 82–110; BP diastolic 47–74
[2017-01-17 04:07] LABS: HEMATOCRIT 27.5 % (42.0-52.0); HEMOGLOBIN 9.3 gm/dL (14.0-18.0); MCH 27.1 pg (26.0-34.0); MCHC 33.8 g/dL (28.0-37.0); MCV 80.2 fL (80.0-100.0); PLATELET COUNT 304 thou/uL (150-400); RBC 3.42 mil/uL (4.50-6.00); RDW 14.5 % (10.5-14.5); WBC 12.5 thou/uL (4.0-11.0)
[2017-01-17 04:09] LABS: MANUAL DIFF YES
[2017-01-17 04:23] LABS: CALCIUM 7.6 mg/dL (8.5-10.1); CREATININE 0.7 mg/dL (0.7-1.3)
[2017-01-17 04:56] LABS: POTASSIUM 2.9 mmol/L (3.5-5.1)
[2017-01-17 06:18] LABS: ABSOLUTE NEUTROPHILS 10.4 thou/uL (1.4-8.2); TOTAL CELL COUNT 100
[2017-01-18 06:31] LABS: HEMATOCRIT 27.7 % (42.0-52.0); MCH 26.4 pg (26.0-34.0); MCHC 32.4 g/dL (28.0-37.0); MCV 81.4 fL (80.0-100.0); PLATELET COUNT 320 thou/uL (150-400); RDW 14.3 % (10.5-14.5); WBC 11.3 thou/uL (4.0-11.0)
[2017-01-18 06:46] LABS: CALCIUM 7.9 mg/dL (8.5-10.1); CREATININE 0.6 mg/dL (0.7-1.3); MANUAL DIFF YES; POTASSIUM 3.4 mmol/L (3.5-5.1)
[2017-01-18 08:33] LABS: ABSOLUTE NEUTROPHILS 9.3 thou/uL (1.4-8.2); PLATELET ESTIMATE NORMAL; TOTAL CELL COUNT 100
[2017-01-18 08:34] LABS: ANISOCYTOSIS SLIGHT; HYPOCHROMASIA 1+
[2017-01-18 19:00] VITALS: BP 125/78
[2017-01-18 20:00] VITALS: BP 108/76
[2017-01-18 21:00] VITALS: BP 95/55
[2017-01-18 22:00] VITALS: BP 89/49
[2017-01-18 23:00] VITALS: BP 99/64
[2017-01-19] VITALS (15 sets, daily range): BP systolic 88–120; BP diastolic 35–72
[2017-01-19 06:02] LABS: ABSOLUTE NEUTROPHILS 8.8 thou/uL (1.4-8.2); BASOPHILS 0.5 % (0.0-2.0); EOSINOPHILS 1.5 % (0.0-3.0); HEMATOCRIT 28.5 % (42.0-52.0); HEMOGLOBIN 9.4 gm/dL (14.0-18.0); LYMPHOCYTES 10.5 % (24.0-44.0); MCH 26.9 pg (26.0-34.0); MCV 81.5 fL (80.0-100.0); MONOCYTES 5.7 % (1.0-8.0); PLATELET COUNT 337 thou/uL (150-400); POLYS 81.8 % (36.0-66.0); RBC 3.49 mil/uL (4.50-6.00); RDW 14.4 % (10.5-14.5); WBC 10.8 thou/uL (4.0-11.0)
[2017-01-19 06:08] LABS: MANUAL DIFF NO
[2017-01-19 06:11] LABS: ALBUMIN 1.3 g/dL (3.4-5.0); ALKALINE PHOSPHATASE 74 U/L (46-116); ANION GAP 8 mmol/L (7-16); BUN 3 mg/dL (7-18); CALCIUM 7.8 mg/dL (8.5-10.1); CHLORIDE 100 mmol/L (98-107); CO2 27 mmol/L (21-32); CREATININE 0.5 mg/dL (0.7-1.3); GLUCOSE 105 mg/dL (74-106); MAGNESIUM 1.5 mg/dL (1.8-2.4); POTASSIUM 3.5 mmol/L (3.5-5.1); SGOT 11 U/L (15-37); SGPT < 6 U/L (30-65); SODIUM 135 mmol/L (136-145); TOTAL BILIRUBIN 0.4 mg/dL (<0.1-1.0); TOTAL PROTEIN 5.4 g/dL (6.4-8.2)
[2017-01-20 00:53] VITALS: BP 117/70
[2017-01-20 03:17] VITALS: BP 105/71
[2017-01-20 07:40] LABS: ABSOLUTE NEUTROPHILS 7.9 thou/uL (1.4-8.2); BASOPHILS 0.6 % (0.0-2.0); EOSINOPHILS 1.7 % (0.0-3.0); HEMATOCRIT 28.3 % (42.0-52.0); HEMOGLOBIN 9.7 gm/dL (14.0-18.0); LYMPHOCYTES 13.6 % (24.0-44.0); MCH 27.4 pg (26.0-34.0); MCHC 34.4 g/dL (28.0-37.0); MCV 79.6 fL (80.0-100.0); MONOCYTES 6.3 % (1.0-8.0); POLYS 77.8 % (36.0-66.0); RBC 3.55 mil/uL (4.50-6.00); RDW 14.2 % (10.5-14.5); WBC 10.2 thou/uL (4.0-11.0)
[2017-01-20 07:59] LABS: ALBUMIN 1.7 g/dL (3.4-5.0); CALCIUM 8.1 mg/dL (8.5-10.1); CREATININE 0.8 mg/dL (0.7-1.3); MAGNESIUM 1.8 mg/dL (1.8-2.4); MANUAL DIFF NO; PLATELET COUNT 446 thou/uL (150-400); POTASSIUM 3.5 mmol/L (3.5-5.1); TOTAL BILIRUBIN 0.3 mg/dL (<0.1-1.0)
[2017-01-20 11:31] VITALS: BP 128/71
[2017-01-20 18:53] VITALS: BP 96/54
[2017-01-21 00:29] VITALS: BP 137/97
[2017-01-21 04:15] VITALS: BP 112/87
[2017-01-21 07:50] VITALS: BP 113/65
[2017-01-21 11:26] VITALS: BP 86/51
[2017-01-21 15:20] VITALS: BP 114/52
[2017-01-21 19:36] VITALS: BP 82/49
[2017-01-22 05:56] VITALS: BP 98/61
[2017-01-22 07:04] VITALS: BP 93/51
[2017-01-22 18:00] VITALS: BP 124/72
[2017-01-22 18:32] VITALS: BP 124/74
[2017-01-22 19:12] VITALS: BP 125/71
[2017-01-23 04:08] VITALS: BP 97/56
[2017-01-23 06:20] LABS: HEMATOCRIT 27.3 % (42.0-52.0); HEMOGLOBIN 9.1 gm/dL (14.0-18.0); MCH 26.9 pg (26.0-34.0); MCHC 33.2 g/dL (28.0-37.0); MCV 80.8 fL (80.0-100.0); RBC 3.38 mil/uL (4.50-6.00); RDW 14.8 % (10.5-14.5); WBC 12.3 thou/uL (4.0-11.0)
[2017-01-23 06:42] LABS: ALBUMIN 1.7 g/dL (3.4-5.0); CALCIUM 7.7 mg/dL (8.5-10.1); CREATININE 0.7 mg/dL (0.7-1.3); MAGNESIUM 1.6 mg/dL (1.8-2.4); POTASSIUM 3.9 mmol/L (3.5-5.1); TOTAL BILIRUBIN 0.5 mg/dL (<0.1-1.0); TOTAL PROTEIN 5.6 g/dL (6.4-8.2)
[2017-01-23 07:25] VITALS: BP 86/53
[2017-01-23 16:36] VITALS: BP 94/57
[2017-01-23 18:59] VITALS: BP 89/48
[2017-01-24 00:22] VITALS: BP 106/57
[2017-01-24 03:09] VITALS: BP 95/58
[2017-01-24 07:00] VITALS: BP 87/54
[2017-01-24 11:30] VITALS: BP 92/56
[2017-01-24 17:35] VITALS: BP 102/68
[2017-01-24 19:43] VITALS: BP 110/69
[2017-01-25 00:03] VITALS: BP 98/58
[2017-01-25 04:49] VITALS: BP 113/75
[2017-01-25 05:18] LABS: ALBUMIN 1.7 g/dL (3.4-5.0); CALCIUM 7.8 mg/dL (8.5-10.1); CREATININE 0.7 mg/dL (0.7-1.3); MAGNESIUM 1.7 mg/dL (1.8-2.4); PHOSPHORUS 1.8 mg/dL (2.5-4.9); POTASSIUM 3.4 mmol/L (3.5-5.1)
[2017-01-25 08:28] VITALS: BP 111/73
[2017-01-25 11:15] LABS: MAGNESIUM 1.9 mg/dL (1.8-2.4); POTASSIUM 4.2 mmol/L (3.5-5.1)
[2017-01-25 15:44] VITALS: BP 98/61
[2017-01-25 19:21] VITALS: BP 108/60
[2017-01-26 00:10] VITALS: BP 116/71
[2017-01-26 05:13] VITALS: BP 107/70
[2017-01-26 05:39] LABS: ALBUMIN 1.8 g/dL (3.4-5.0); CALCIUM 8.2 mg/dL (8.5-10.1); CREATININE 0.8 mg/dL (0.7-1.3); PHOSPHORUS 2.4 mg/dL (2.5-4.9); POTASSIUM 3.6 mmol/L (3.5-5.1)
[2017-01-26 07:38] VITALS: BP 115/72
[2017-01-26] MEDS ORDERED: ZOSYN 4.5 GRAM4.5 GM IV (10:38)
[2017-01-26] MEDS ORDERED: ENOXAPARIN40 MG/0.1 SUBQ (10:40)
[2017-01-26] MEDS ORDERED: COZAAR 25 MG TA25 M1 PO (10:41)
[2017-01-26] MEDS ORDERED: CARVEDILOL3.125 MG PO (10:41)
[2017-01-26] MEDS ORDERED: HYDROCODON-ACE1 EAC7 PO (10:41)
[2017-01-26] MEDS ORDERED: ATORVASTATIN CA40 MG PO (10:41)
[2017-01-26] MEDS ORDERED: DAKIN'S473 ML IRRIG (10:42)
[2017-01-26] MEDS ORDERED: ALPRAZOLAM 0.0.25 M1 PO (10:42)
[2017-01-26] MEDS ORDERED: LEVEMIR SUBQ (10:42)
[2017-01-26] MEDS ORDERED: PANTOPRAZOLE SO40 M1 PO (10:42)
[2017-01-26] MEDS ORDERED: HUMALOG100 UNIT/1 SUBQ (10:43)
[2017-01-26] MEDS ORDERED: FLUCONAZOL200 MG/105 IVPB (10:43)
== END 2017-01-26 15:41 | DRG 853 ==
LOC: 4W 10:11 → ICU 11:33 → 4W 19:17 → ICU 01-15 01:05 → 4W 01-19 11:16
PROVIDERS: Hospitalist; Internal Medicine Endocrinology, Diabetes & Metabolism; Nurse Practitioner Acute Care; Nurse Practitioner Family; Radiology Diagnostic Radiology; Surgery
DX: A41.9 Sepsis, unspecified organism (principal); E43 Unspecified severe protein-calorie malnutrition; K35.3 Acute appendicitis with localized peritonitis; M72.6 Necrotizing fasciitis; J96.01 Acute respiratory failure with hypoxia; K57.40 Diverticulitis of both small and large intestine with perforation and abscess without bleeding; L97.929 Non-pressure chronic ulcer of unspecified part of left lower leg with unspecified severity; K63.2 Fistula of intestine; L02.211 Cutaneous abscess of abdominal wall; L02.214 Cutaneous abscess of groin; I10 Essential (primary) hypertension; I25.10 Atherosclerotic heart disease of native coronary artery without angina pectoris; K21.9 Gastro-esophageal reflux disease without esophagitis; F17.210 Nicotine dependence, cigarettes, uncomplicated; E78.5 Hyperlipidemia, unspecified; I95.9 Hypotension, unspecified; I25.5 Ischemic cardiomyopathy; N49.3 Fournier gangrene; K40.90 Unilateral inguinal hernia, without obstruction or gangrene, not specified as recurrent; E87.6 Hypokalemia; E11.9 Type 2 diabetes mellitus without complications; N49.2 Inflammatory disorders of scrotum; R65.20 Severe sepsis without septic shock; L89.152 Pressure ulcer of sacral region, stage 2; K42.9 Umbilical hernia without obstruction or gangrene; Z88.8 Allergy status to other drugs, medicaments and biological substances; I25.2 Old myocardial infarction; Z87.81 Personal history of (healed) traumatic fracture; Z71.6 Tobacco abuse counseling; Z68.28 Body mass index [BMI] 28.0-28.9, adult
CPT/HCPCS: 10045; 10078; 27000; 50010; 50093; 50101; 50290; 50291; 50386; 50403; 50455; 50612; 50953; 51398; 51412; 51437; 51708; 53353; 53354; 54109; 56526; 56639; 56753; 56771; 57092; 62110; 62900; 65002; 70005

== ENCOUNTER → 2017-02-08 | Outpatient (CLI) | payer OTHER ==
[~2017-02-08] MED LIST: ALPRAZOLAM 0.0.25 M1 PO; ASPIR 8181 MG PO; ATORVASTATIN CA40 MG PO; CARVEDILOL3.125 MG PO; COMBIVENT RESPIM4 GM IH; COZAAR 25 MG TA25 M1 PO; DAKIN'S473 ML IRRIG; ENOXAPARIN40 MG/0.1 SUBQ; FLUCONAZOL200 MG/105 IVPB; HUMALOG100 UNIT/1 SUBQ; HYDROCODON-ACE1 EAC7 PO; LASIX 40 MG TAB40 M2 PO; LEVEMIR SUBQ; PANTOPRAZOLE SO40 M1 PO; PLAVIX 75 MG TA75 M1 PO; POTASSIUM20 PO; SPIRONOLACTONE25 M1 PO; TOPROL XL25 MG PO; VITAMIN D3400 UNIT PO; ZOSYN 4.5 GRAM4.5 GM IV
== END ==
LOC: RAD 07:35
DX: Z43.2 Encounter for attention to ileostomy (principal); K57.00 Diverticulitis of small intestine with perforation and abscess without bleeding; N49.3 Fournier gangrene; J44.9 Chronic obstructive pulmonary disease, unspecified; I25.5 Ischemic cardiomyopathy

== ENCOUNTER 2017-06-18 05:23 | Inpatient (IN) | payer OTHER ==
[~2017-06-18] VITALS: Ht 175.3 cm; Wt 78.0 kg
--- NOTE | ~2017-06-18 | O ---
[facility] [place] [address] [place] [address] OPERATIVE REPORT Name: BETTY WATKINS Room #: 429-P [facility] IN M.R.#: [id number] Admission: 06/18/17 Attend Phys: Kadeem Gonzalez MD, F Discharge: Date of : 60 Report #: [id number] THIS REPORT FOR: //name// CC: FAM unknown Kadeem Gonzalez DATE OF SERVICE: 06/18/2017 SURGEON: Kadeem Gonzalez MD CRANE OPERATOR CAB: Avtar Davison DO PREOPERATIVE DIAGNOSES: 1. History of diverticulitis with abscess, status post sigmoid colectomy with diverting loop ileostomy. 2. Ischemic cardiomyopathy. 3. Diabetes mellitus. 4. Hypertension. 5. Desire for bowel continuity. POSTOPERATIVE DIAGNOSES: 1. History of diverticulitis with abscess, status post sigmoid colectomy with diverting loop ileostomy. 2. Parastomal hernia. 3. Ischemic cardiomyopathy. 4. Diabetes mellitus. 5. Hypertension. 6. Desire for bowel continuity. PROCEDURE: 1. Ileostomy reversal with [id number], functional end-to-end stapled anastomosis. 2. Primary repair of parastomal hernia. ANESTHESIA: General endotracheal anesthesia and local anesthetic. ESTIMATED BLOOD LOSS: 15 mL. SPECIMEN: None. COMPLICATIONS: None appreciated. INDICATIONS FOR PROCEDURE: This is a 57-year-old male patient who underwent diverting loop ileostomy to protect the anastomosis from a sigmoid colectomy for perforated diverticulitis nearly 5 months ago. The patient desires bowel continuity. He presents now for ileostomy reversal. [facility] [address] [place] [address] OPERATIVE REPORT Name: BETTY WATKINS Room #: 429-P ADM IN M.R.#: [id number] Admission: 06/18/17 Attend Phys: Kadeem Gonzalez MD, F Discharge: Date of : 60 Report #: [id number] DESCRIPTION OF PROCEDURE IN DETAIL: After the risks, benefits and expectations of the operation were discussed in detail with the patient, informed consent was obtained. The patient was identified in preoperative holding area. He was given IV antibiotics as documented in the chart in line with SCIP metrics. The patient was then taken to the operating room and he was placed in the supine position. SCDs were placed on the patient's bilateral lower extremities and pneumatic compression was initiated. The patient was then given IV sedation and he was intubated without incident. A time-out was performed to identify the correct patient and procedure after prepping and draping the patient in the standard sterile fashion. A pursestring suture of 3-0 PDS was placed to close the stoma. A sharp #10 blade scalpel was then used to make a circular incision around the stoma. Electrocautery was used to dissect through subcutaneous tissue down to the fascia. The stoma was freed as the hernia sac was opened with electrocautery. Blunt dissection with a finger sweep was used to clear off any adhesions between the abdominal wall and the stoma. After completely freeing the small-bowel, the small-bowel was elevated. An enterotomy was made on the antimesenteric surface of each side of the bowel. The blue load 75 mm DAQUAN stapler was then used to create the [id number] antimesenteric stapled anastomosis. The common enterotomy was closed with the [place] blue load stapler. The staple line was reinforced with interrupted 3-0 PDS sutures to imbricate the staple line. The anastomosis was palpably patent with no tension on the anastomosis whatsoever. The anastomosis was placed within the abdominal cavity. The parastomal hernia was then repaired with an 0 PDS suture longitudinally to approximate the fascia. The wound was then irrigated. A 3-0 Vicryl suture was used to close Donna's fascia. I initially attempted to close the skin with a pursestring suture; however, this was unsuccessful. An ellipsoid transverse skin incision was made and the tissue excised. Bleeding points were made hemostatic with electrocautery. A running 3-0 monocryl suture was then used to close the skin incision. Dermabond was applied. The patient tolerated the procedure well. He was awakened, extubated, and taken to recovery room in stable condition with no apparent intraoperative complications. <ELECTRONICALLY SIGNED> By: Kadeem Gonzalez MD, FACS 06/18/17 1730 1312 1418 Kadeem Gonzalez MD, FACS /nt
[~2017-06-18 05:23] MED LIST changes: +ALDACTONE25 MG PO; +COREG6.25 MG PO; +IBUPROFEN 200200 M1 PO; +MULTIVITAMINS1 EAC7 PO; +PROTONIX40 M1 PO; +VITAMINC500 PO
[2017-06-18 09:30] VITALS: BP 75/57
[2017-06-18 17:54] LABS: CALCIUM 8.5 mg/dL (8.5-10.1); POTASSIUM 3.6 mmol/L (3.5-5.1)
[2017-06-18 20:00] VITALS: BP 86/59
[2017-06-19 03:00] VITALS: BP 91/61
[2017-06-19 06:28] LABS: ABSOLUTE NEUTROPHILS 5.1 thou/uL (1.4-8.2); BASOPHILS 0.9 % (0.0-2.0); HEMATOCRIT 39.4 % (42.0-52.0); HEMOGLOBIN 13.7 gm/dL (14.0-18.0); LYMPHOCYTES 22.2 % (24.0-44.0); MCH 30.3 pg (26.0-34.0); MCHC 34.7 g/dL (28.0-37.0); MCV 87.4 fL (80.0-100.0); MONOCYTES 9.2 % (1.0-8.0); PLATELET COUNT 189 thou/uL (150-400); POLYS 64.7 % (36.0-66.0); RDW 14.3 % (10.5-14.5); WBC 7.9 thou/uL (4.0-11.0)
[2017-06-19 06:59] LABS: CALCIUM 8.3 mg/dL (8.5-10.1); CREATININE 1.3 mg/dL (0.7-1.3); POTASSIUM 3.9 mmol/L (3.5-5.1)
[2017-06-19 10:30] VITALS: BP 104/65
[2017-06-19 15:21] VITALS: BP 83/55
[2017-06-19 20:00] VITALS: BP 105/56
[2017-06-20 04:08] VITALS: BP 87/58
[2017-06-20 06:03] LABS: ABSOLUTE NEUTROPHILS 5.4 thou/uL (1.4-8.2); BASOPHILS 0.8 % (0.0-2.0); EOSINOPHILS 3.1 % (0.0-3.0); HEMATOCRIT 40.2 % (42.0-52.0); HEMOGLOBIN 13.9 gm/dL (14.0-18.0); MCH 30.2 pg (26.0-34.0); MCHC 34.6 g/dL (28.0-37.0); MCV 87.5 fL (80.0-100.0); MONOCYTES 9.2 % (1.0-8.0); PLATELET COUNT 184 thou/uL (150-400); POLYS 64.9 % (36.0-66.0); RDW 14.6 % (10.5-14.5); WBC 8.4 thou/uL (4.0-11.0)
[2017-06-20 06:16] LABS: CALCIUM 8.9 mg/dL (8.5-10.1); POTASSIUM 3.6 mmol/L (3.5-5.1)
[2017-06-20 08:26] VITALS: BP 85/58
[2017-06-20 16:21] VITALS: BP 100/69
[2017-06-20 20:00] VITALS: BP 92/63
[2017-06-20 23:23] VITALS: BP 91/55
[2017-06-21 04:11] VITALS: BP 107/66
[2017-06-21 05:24] LABS: HEMATOCRIT 40.3 % (42.0-52.0); HEMOGLOBIN 13.9 gm/dL (14.0-18.0); MCH 30.2 pg (26.0-34.0); MCHC 34.5 g/dL (28.0-37.0); MCV 87.5 fL (80.0-100.0); PLATELET COUNT 219 thou/uL (150-400); RDW 14.3 % (10.5-14.5); WBC 10.8 thou/uL (4.0-11.0)
[2017-06-21 05:45] LABS: CALCIUM 9.1 mg/dL (8.5-10.1); POTASSIUM 3.8 mmol/L (3.5-5.1)
[2017-06-21 06:02] LABS: ABSOLUTE NEUTROPHILS 8.7 thou/uL (1.4-8.2)
[2017-06-21] MEDS ORDERED: FLOMAX0.4 MG PO (09:24)
[2017-06-21] MEDS ORDERED: CARVEDILOL3.125 MG PO (09:25)
[2017-06-21 11:49] VITALS: BP 107/66
== END 2017-06-21 12:01 | disposition home or self-care (01) | DRG 329 ==
LOC: TBA 05:23 → 4E 05:23 → PRE 08:55 → 4E 14:28 → ENTRNSPT 06-21 11:59 → 4E 06-21 12:01 → CMPTRNSPT 06-21 12:01
PROVIDERS: Family Medicine; Surgery
PROC: 0WQF0ZZ Repair Abdominal Wall, Open Approach (ICD-10-PCS; principal; 2017-06-18)
PROC: 0DSB0ZZ Reposition Ileum, Open Approach (ICD-10-PCS; principal; 2017-06-18)
DX: Z43.2 Encounter for attention to ileostomy (principal); N17.0 Acute kidney failure with tubular necrosis; K43.5 Parastomal hernia without obstruction or gangrene; E11.9 Type 2 diabetes mellitus without complications; I25.5 Ischemic cardiomyopathy; I25.10 Atherosclerotic heart disease of native coronary artery without angina pectoris; K21.9 Gastro-esophageal reflux disease without esophagitis; I50.9 Heart failure, unspecified; E11.42 Type 2 diabetes mellitus with diabetic polyneuropathy; I11.0 Hypertensive heart disease with heart failure; F17.210 Nicotine dependence, cigarettes, uncomplicated; Z90.49 Acquired absence of other specified parts of digestive tract; Z88.8 Allergy status to other drugs, medicaments and biological substances; Z79.82 Long term (current) use of aspirin; Z79.899 Other long term (current) drug therapy; Z95.5 Presence of coronary angioplasty implant and graft; I25.2 Old myocardial infarction; Z79.4 Long term (current) use of insulin
CPT/HCPCS: 10183; 50010; 50101; 50386; 50455; 51435; 51708; 51712; 54118; 56524; 56525; 56526; 56530; 57092; 62110; 62900; 65020; 65040; 65043; 70005